=== PATIENT | female | born 1965 | race Caucasian/White ===

== ENCOUNTER 2016-11-04 19:14 | Emergency (ER) | payer MEDICARE, OTHER ==
[2016-11-04 19:14] VITALS: BMI 31.1
[2016-11-04 19:40] VITALS: BP 131/73; PULSE 61; RESP 16; TEMP 98.5; O2SAT 99
--- NOTE | 2016-11-04 21:01 | ED PDOC ---
HPI: Chest Pain Time Seen by Provider: 11/04/16 19:54 Chief Complaint (Nursing): Chest Pain Chief Complaint (Provider): Chest Pain History Per: Family History/Exam Limitations: clinical condition (dementia) Onset/Duration Of Symptoms: Hrs (1 hour prior to arrival), Sudden Onset Current Symptoms Are (Timing): Better Severity: Moderate Associated Symptoms: Dyspnea (mild). denies: Nausea, Other (vomiting) Additional Complaint(s): Brandi Pradhan is a 51 year old female, accompanied to the ER with her family, with a past medical history of Alzheimer's disease and hypertension, who presents to the emergency department for the evaluation of an acute onset of chest pain, that the patient experienced while she was resting, 1 hour prior to arrival. As per patient's family, her chest pain was inclusive of approximately 15-20 minutes of belching. On arrival to the emergency department , patient denies any symptoms, which the family states is consistent with her dementia. Associated mild dyspnea is currently present. Denies nausea or vomiting. PMD: none specified Past Medical History Reviewed: Historical Data, Nursing Documentation, Vital Signs Vital Signs: Last Vital Signs Temp 98.5 F 11/04/16 19:37 Pulse 61 11/04/16 19:37 Resp 16 11/04/16 19:37 BP 131/73 11/04/16 19:37 Pulse Ox 99 11/04/16 19:37 - Medical History PMH: Alzheimer's Disease, HTN - Surgical History Surgical History: Appendectomy Other surgeries: Cataract Surgery - Family History Family History: States: No Known Family Hx - Living Arrangements Living Arrangements: With Family - Social History Current smoker - smoking cessation education provided: No Ex-Smoker (has not smoked in the last 12 months): No Alcohol: None Drugs: Denies - Allergies Allergies/Adverse Reactions: Allergies Allergy/AdvReac Type Severity Reaction Status Date / Time Sulfa (Sulfonamide Allergy PAIN Verified 11/04/16 19:35 Antibiotics) Review of Systems Review Of Systems: ROS cannot be obtained secondary to pt's inabilty to answer questions. (ROS is unobtainable due to patient's clinical condition of dementia) Constitutional: Positive for: Other (belching) Cardiovascular: Positive for: Chest Pain Respiratory: Positive for: Shortness of Breath (mild) Gastrointestinal: Negative for: Nausea, Vomiting Physical Exam - Reviewed Nursing Documentation Reviewed: Yes Vital Signs Reviewed: Yes - Physical Exam Appears: Positive for: Non-toxic, No Acute Distress Head Exam: Positive for: ATRAUMATIC, NORMOCEPHALIC Skin: Positive for: Normal Color, Warm, Dry Eye Exam: Positive for: Normal appearance, EOMI Cardiovascular/Chest: Positive for: Regular Rate, Rhythm. Negative for: Murmur Respiratory: Positive for: Normal Breath Sounds. Negative for: Respiratory Distress Gastrointestinal/Abdominal: Positive for: Normal Exam, Soft, Tenderness ( epigastric) Back: Positive for: Normal Inspection. Negative for: L CVA Tenderness, R CVA Tenderness Extremity: Positive for: Normal ROM. Negative for: Tenderness, Swelling Neurologic/Psych: Positive for: Alert. Negative for: Oriented (only oriented to person, which is baseline for this patient) - ECG O2 Sat by Pulse Oximetry: 99 (RA) Pulse Ox Interpretation: Normal Medical Decision Making Medical Decision Makin:54 Initial Impression: 51 year old female presents to the emergency department for chest pain and epigastric tenderness with a known setting of Alzheimer's disease and hypertension. Initial Plan: * Duplex Left Upper Extremity Ultrasound * Electrocardiogram * Complete Blood Count * Comprehensive Metabolic Panel * Erythrocyte Sedimentation Rate * Prothrombin Time * Partial Thromboplastin Time * Lipase * Urine Dip * Urine * Reevaluation Scribe Attestation: Documented by Antonio Hilario, acting as a scribe for Woo Brody MD. Provider Scribe Attestation: All medical record entries made by the Scribe were at my direction and personally dictated by me. I have reviewed the chart and agree that the record accurately reflects my personal performance of the history, physical exam, medical decision making, and the department course for this patient. I have also personally directed, reviewed, and agree with the discharge instructions and disposition.
[2016-11-04 21:04] LABS: BASO % 0.7 % (0.0-2.0); EOS # 0.3 K/uL (0.0-0.7); EOS % 4.4 % (0.0-4.0); HEMATOCRIT 39.5 % (34.0-47.0); LYMPH % 30.8 % (20.0-40.0); MEAN CELL VOLUME 86.8 fl (81.0-99.0); MEAN CORPUSCULAR HEMOGLOBIN 28.5 pg (27.0-31.0); MEAN CORPUSCULAR HGB CONC 32.9 g/dL (33.0-37.0); MONO # 0.5 K/uL (0.0-0.8); MONO % 8.2 % (0.0-10.0); NEUT # 3.7 K/uL (1.8-7.0); NEUT % 55.9 % (50.0-75.0); RED CELL DISTRIBUTION WIDTH 13.6 % (11.5-14.5); WHITE BLOOD COUNT 6.6 K/uL (4.8-10.8)
--- NOTE | 2016-11-04 21:25 | ED PDOC ---
Upper Extremity Pain/Injury Time Seen by Provider: 11/04/16 19:54 Chief Complaint (Nursing): Chest Pain Chief Complaint (Provider): Left Arm & Abdominal Pain History Per: Patient History/Exam Limitations: no limitations Onset/Duration Of Symptoms: Days (ongoing for 4 days), Persistent Current Symptoms Are (Timing): Still Present Severity: Moderate Additional Complaint(s): Brandi Pradhan is a 51 year old female, with a past medical history of lupus and hypertension, who presents to the emergency department for the evaluation of persistent left arm and abdominal pain, that the patient has been experiencing for the past 4 days. Patient denies taking any over the counter medications to help alleviate her pain. Associated nausea and loss of appetite are currently present. Denies a fever, vomiting, diarrhea, or a cough. Of note, patient is compliant with her medication(s) for lupus. PMD: none specified Past Medical History Reviewed: Historical Data, Nursing Documentation, Vital Signs Vital Signs: Last Vital Signs Temp 98.5 F 11/04/16 19:37 Pulse 61 11/04/16 19:37 Resp 16 11/04/16 19:37 BP 131/73 11/04/16 19:37 Pulse Ox 99 11/04/16 19:37 - Medical History PMH: HTN Other PMH: Lupus - Surgical History Surgical History: Cholecystectomy Other surgeries: Hysterectomy - Family History Family History: States: No Known Family Hx - Social History Current smoker - smoking cessation education provided: No Ex-Smoker (has not smoked in the last 12 months): No Alcohol: None Drugs: Denies - Home Medications Home Medications: Ambulatory Orders Medication Instructions Recorded Naproxen [Naprosyn] 500 mg PO Q12 #14 tab 11/04/16 - Allergies Allergies/Adverse Reactions: Allergies Allergy/AdvReac Type Severity Reaction Status Date / Time Sulfa (Sulfonamide Allergy PAIN Verified 11/04/16 19:35 Antibiotics) Review of Systems ROS Statement: Except As Marked, All Systems Reviewed And Found Negative Constitutional: Negative for: Fever Respiratory: Negative for: Cough Gastrointestinal: Positive for: Nausea, Abdominal Pain, Other (loss of appetite) . Negative for: Vomiting, Diarrhea Musculoskeletal: Positive for: Arm Pain (L) Physical Exam - Reviewed Nursing Documentation Reviewed: Yes Vital Signs Reviewed: Yes - Physical Exam Appears: Positive for: Well, Non-toxic, No Acute Distress Head Exam: Positive for: ATRAUMATIC, NORMOCEPHALIC Skin: Positive for: Normal Color, Warm, Dry Cardiovascular/Chest: Positive for: Regular Rate, Rhythm. Negative for: Murmur Respiratory: Positive for: Normal Breath Sounds. Negative for: Respiratory Distress Gastrointestinal/Abdominal: Positive for: Normal Exam, Soft. Negative for: Tenderness Back: Positive for: Normal Inspection. Negative for: L CVA Tenderness, R CVA Tenderness Extremity: Positive for: Normal ROM. Negative for: Tenderness, Swelling Neurologic/Psych: Positive for: Alert, Oriented. Negative for: Motor/Sensory Deficits - Laboratory Results Result Diagrams: 11/04/16 20:50 11/04/16 20:50 - ECG O2 Sat by Pulse Oximetry: 99 (RA) Pulse Ox Interpretation: Normal Medical Decision Making Medical Decision Makin:54 Initial Impression: 51 year old female presenting to the emergency department with left upper extremity pain and a setting of known lupus. Initial Plan: * Duplex Left Upper Extremity Ultrasound * Electrocardiogram * Complete Blood Count * Comprehensive Metabolic Panel * Erythrocyte Sedimentation Rate * Prothrombin Time * Partial Thromboplastin Time * Lipase * Urine Dip * Urine * Reevaluation Scribe Attestation: Documented by Antonio Hilario, acting as a scribe for Woo Brody MD. Provider Scribe Attestation: All medical record entries made by the Scribe were at my direction and personally dictated by me. I have reviewed the chart and agree that the record accurately reflects my personal performance of the history, physical exam, medical decision making, and the department course for this patient. I have also personally directed, reviewed, and agree with the discharge instructions and disposition. Time: 22:50 --Extremity Ultrasound FINDINGS: No DVT in the internal jugular, subclavian, axillary, or brachial veins. The veins are compressible with normal color flow and augmentation. No thrombus in the visualized basilic and cephalic veins. No thrombus identified in the radial or ulnar veins. IMPRESSION: No deep venous thrombosis in visualized veins of the left upper extremity. Time: 23:52 --Labs reviewed with no clinical significant abnormalities. Upon provider reevaluation patient reports improvement and is medically stable, and requires no further treatment in the ED at this time. Patient will be discharged home with Rx for Naproxen 500 mg. Counseling was provided and all questions were answered regarding diagnosis and need for follow up with primary care physician. There is agreement to discharge plan. Return if symptoms persist or worsen. Clinical Impression: Left arm pain with abdominal pain in setting of known lupus Scribe Attestation: Documented by Irene Durbin, acting as a scribe for Woo Brody MD. Provider Scribe Attestation: All medical record entries made by the Scribe were at my direction and personally dictated by me. I have reviewed the chart and agree that the record accurately reflects my personal performance of the history, physical exam, medical decision making, and the department course for this patient. I have also personally directed, reviewed, and agree with the discharge instructions and disposition. Disposition - Clinical Impression Clinical Impression: Upper extremity pain, Abdominal pain - Disposition Disposition: Routine/Home Disposition Time: 23:52 Condition: STABLE Prescriptions: Naproxen [Naprosyn] 500 mg PO Q12 #14 tab Instructions: Abdominal Pain (ED), Autoimmune Disease (ED) Print Language: ERITREAN
[2016-11-04 21:30] LABS: PARTIAL THROMBOPLASTIN TIME 27.6 SECONDS (23.3-32.5)
[2016-11-04 21:31] LABS: ALB/GLOB RATIO 1.3 (1.0-2.1); ALKALINE PHOSPHATASE 84 U/L (38-126); ALT/SGPT 38 U/L (9-52); AST/SGOT 29 U/L (14-36); BILIRUBIN,TOTAL 0.9 mg/dl (0.2-1.3); BLOOD UREA NITROGEN 20 mg/dl (7-17); CARBON DIOXIDE 27 mmol/L (22-30); CHLORIDE 102 mmol/L (98-107); GFR AFRICAN-AMERICAN > 60; GLUCOSE,RANDOM 113 mg/dL (65-105); LIPASE 282 U/L (23-300); POTASSIUM 3.4 MMOL/L (3.6-5.0); SODIUM 140 mmol/l (132-148); TOTAL PROTEIN 7.8 G/DL (6.3-8.2)
[2016-11-04 22:00] LABS: RBC URINE 2 /hpf (0-3); URINE BACTERIA RARE (<OCC); URINE BILIRUBIN NEGATIVE (NEGATIVE); URINE BLOOD NEGATIVE (NEGATIVE); URINE COLOR YELLOW (YELLOW); URINE GLUCOSE (UA) NEG (Normal); URINE KETONE NEGATIVE (NEGATIVE); URINE LEUKOCYTE ESTERASE NEG Leu/uL (Negative); URINE PROTEIN NEGATIVE (NEGATIVE); URINE UROBILINOGEN 0.2-1.0 mg/dL (0.2-1.0); WBC URINE 1 /hpf (0-5)
--- NOTE | 2016-11-04 22:51 | US ---
EXAM: US Duplex Left Upper Extremity Veins CLINICAL HISTORY: 51 years old, female; Pain; Arn, upper; Left TECHNIQUE: Real-time ultrasound scan of the veins of the left upper extremity with color Doppler flow, spectral waveform analysis and compression. COMPARISON: No relevant prior studies available. FINDINGS: No DVT in the internal jugular, subclavian, axillary, or brachial veins. The veins are compressible with normal color flow and augmentation. No thrombus in the visualized basilic and cephalic veins. No thrombus identified in the radial or ulnar veins. IMPRESSION: No deep venous thrombosis in visualized veins of the left upper extremity.
--- NOTE | 2016-11-09 10:05 | CARD ---
APPROVED REPORT EKG Measurement Heart [id number] <Conclusion> Normal sinus rhythm Normal ECG
== END 2016-11-05 00:17 | disposition home or self-care (01) ==
LOC: H.ER 19:14
DX: M79.602 Pain in left arm (principal); R10.9 Unspecified abdominal pain; I10 Essential (primary) hypertension; M32.9 Systemic lupus erythematosus, unspecified; Z87.891 Personal history of nicotine dependence
CPT/HCPCS: 80053; 81003; 81025; 83690; 84484; 85025; 85610; 85651; 85730; 87086; 87181; 93005; 93971; 96374; 99284; J1885

== ENCOUNTER 2017-01-31 19:40 | Emergency (ER) | payer MEDICARE, OTHER ==
[2017-01-31 19:41] VITALS: BMI 30.2
[2017-01-31 20:14] VITALS: BP 126/86; PULSE 66; RESP 20; TEMP 98.3; O2SAT 100
--- NOTE | 2017-01-31 21:07 | ED PDOC ---
HPI: Back Time Seen by Provider: 01/31/17 20:15 Chief Complaint (Nursing): Back Pain Chief Complaint (Provider): Flank pain History Per: Patient History/Exam Limitations: no limitations Onset/Duration Of Symptoms: Days (x 1) Current Symptoms Are (Timing): Still Present Additional Complaint(s): Brandi Pradhan is a 51 y/o female with a past medical history of Lupus , who presents to the ED complaining of right flank pain with associated mild upper abdominal pain and nausea, for 1 day. Denies fever, cough, vomiting, and shortness of breath. Reports she has had mild diarrhea. No visible hematuria or other urinary symptoms. PMD: Trino Hernandez MD Past Medical History Reviewed: Historical Data, Nursing Documentation, Vital Signs Vital Signs: Last Vital Signs Temp 98.3 F 01/31/17 20:11 Pulse 66 01/31/17 20:11 Resp 20 01/31/17 20:11 BP 126/86 01/31/17 20:11 Pulse Ox 100 01/31/17 20:11 - Medical History PMH: Asthma, HTN Other PMH: Lupus - Surgical History Surgical History: Cholecystectomy Other surgeries: Hysterectomy, oophorectomy - Family History Family History: States: Unknown Family Hx - Social History Current smoker - smoking cessation education provided: No Alcohol: None Drugs: Denies - Home Medications Home Medications: Ambulatory Orders Medication Instructions Recorded Naproxen [Naprosyn] 500 mg PO Q12 #14 tab 11/04/16 traMADol [Ultram] 50 mg PO Q6 PRN #12 tab 01/31/17 - Allergies Allergies/Adverse Reactions: Allergies Allergy/AdvReac Type Severity Reaction Status Date / Time Sulfa (Sulfonamide Allergy PAIN Verified 11/04/16 19:35 Antibiotics) Review of Systems ROS Statement: Except As Marked, All Systems Reviewed And Found Negative Constitutional: Negative for: Fever Respiratory: Negative for: Cough, Shortness of Breath Gastrointestinal: Positive for: Nausea, Abdominal Pain (Flank pain), Diarrhea. Negative for: Vomiting Genitourinary Female: Negative for: Dysuria, Frequency, Incontinence, Hematuria Physical Exam - Reviewed Nursing Documentation Reviewed: Yes Vital Signs Reviewed: Yes - Physical Exam Appears: Positive for: Non-toxic, Uncomfortable Head Exam: Positive for: ATRAUMATIC, NORMAL INSPECTION, NORMOCEPHALIC Skin: Positive for: Normal Color, Warm, Dry Eye Exam: Positive for: EOMI, Normal appearance, PERRL Neck: Positive for: Normal, Painless ROM, Supple Cardiovascular/Chest: Positive for: Regular Rate, Rhythm. Negative for: Murmur Respiratory: Positive for: Normal Breath Sounds. Negative for: Accessory Muscle Use, Respiratory Distress Gastrointestinal/Abdominal: Positive for: Soft. Negative for: Tenderness Back: Positive for: Normal Inspection, R CVA Tenderness Extremity: Positive for: Normal ROM, Capillary Refill (< 2 sec). Negative for: Pedal Edema, Deformity Neurologic/Psych: Positive for: Alert, Oriented - Laboratory Results Result Diagrams: 01/31/17 21:09 01/31/17 21:09 - ECG O2 Sat by Pulse Oximetry: 100 (RA) Pulse Ox Interpretation: Normal Medical Decision Making Medical Decision Making: Time: 20:25 Impression: 51 y/o female with right flank pain in setting of known Lupus Initial Plan: --Labs --EKG --Toradol given --CT Abdomen/Pelvis w/o contrast Time: 22:28 CT Abdomen/Pelvis: FINDINGS: Lower thorax: No acute findings. ABDOMEN: Liver: Unremarkable. Gallbladder and bile ducts: Cholecystectomy. No ductal dilation. Pancreas: Unremarkable. No ductal dilation. Spleen: Unremarkable. No splenomegaly. Adrenals: Unremarkable. No mass. Kidneys and ureters: Mild right pelvic caliectasis may reflect a recently passed calculus in the correct clinical setting. Mild lobulation to the bilateral kidneys. No obstructive or nonobstructive calculi. Stomach and bowel: Unremarkable. No obstruction. No mucosal thickening. Appendix : No findings to suggest acute appendicitis. PELVIS: Bladder: Unremarkable. No stones. Reproductive: Hysterectomy. ABDOMEN and PELVIS: Intraperitoneal space: Unremarkable. No free air. No significant fluid collection. Bones/joints: No acute fracture. No dislocation. Soft tissues: Unremarkable. Vasculature: Unremarkable. No abdominal aortic aneurysm. Lymph nodes: Unremarkable. No enlarged lymph nodes. IMPRESSION: Mild right pelvic caliectasis may reflect a recently passed calculus in the correct clinical setting. Otherwise no acute obstructive or inflammatory process in the abdomen or pelvis. Time: 22:45 --Labs reviewed, no abnormalities --Patient reports improvement in symptoms Clinical Impression: Renal colic Upon provider reevaluation patient is feeling better, medically stable, and requires no further treatment in the ED at this time. Patient will be discharged with Rx for tramadol. Counseling was provided and all questions were answered regarding diagnosis and need for follow up with PMD in 1-2 days. There is agreement to discharge plan. Return if symptoms persist or worsen. Scribe Attestation: Documented by Ana Lilia Richardson, acting as a scribe for Woo Brody MD Provider Scribe Attestation: All medical record entries made by the Scribe were at my direction and personally dictated by me. I have reviewed the chart and agree that the record accurately reflects my personal performance of the history, physical exam, medical decision making, and the department course for this patient. I have also personally directed, reviewed, and agree with the discharge instructions and disposition. Disposition - Clinical Impression Clinical Impression: Renal colic - Patient ED Disposition Is Patient to be Admitted: No Counseled Patient/Family Regarding: Studies Performed, Diagnosis, Need For Followup, Rx Given - Disposition Disposition: Routine/Home Disposition Time: 22:45 Condition: STABLE Prescriptions: traMADol [Ultram] 50 mg PO Q6 PRN #12 tab PRN Reason: flank pain Instructions: Renal Colic (ED) Forms: [employer] (Djiboutian) Print Language: SAMMARINESE
[2017-01-31 21:12] LABS: RBC URINE 2 /hpf (0-3); URINE BACTERIA RARE (<OCC); URINE BILIRUBIN NEGATIVE (NEGATIVE); URINE BLOOD NEGATIVE (NEGATIVE); URINE COLOR COLORLESS (YELLOW); URINE GLUCOSE (UA) NEG (Normal); URINE KETONE NEGATIVE (NEGATIVE); URINE LEUKOCYTE ESTERASE NEG Leu/uL (Negative); URINE PROTEIN NEGATIVE (NEGATIVE); URINE UROBILINOGEN 0.2-1.0 mg/dL (0.2-1.0); WBC URINE < 1 /hpf (0-5)
[2017-01-31 21:14] LABS: BASO % 0.5 % (0.0-2.0); EOS # 0.3 K/uL (0.0-0.7); EOS % 4.4 % (0.0-4.0); HEMATOCRIT 34.1 % (34.0-47.0); LYMPH % 28.6 % (20.0-40.0); MEAN CORPUSCULAR HEMOGLOBIN 28.3 pg (27.0-31.0); MEAN CORPUSCULAR HGB CONC 33.8 g/dL (33.0-37.0); MEAN PLATELET VOLUME 8.4 fl (7.2-11.7); MONO # 0.5 K/uL (0.0-0.8); MONO % 7.6 % (0.0-10.0); NEUT % 58.9 % (50.0-75.0); RED CELL DISTRIBUTION WIDTH 13.1 % (11.5-14.5); WHITE BLOOD COUNT 6.8 K/uL (4.8-10.8)
[2017-01-31 21:22] LABS: ALB/GLOB RATIO 1.3 (1.0-2.1); ALKALINE PHOSPHATASE 73 U/L (38-126); ALT/SGPT 33 U/L (9-52); AST/SGOT 20 U/L (14-36); BILIRUBIN,TOTAL 0.5 mg/dl (0.2-1.3); BLOOD UREA NITROGEN 22 mg/dl (7-17); CALCIUM 9.2 mg/dL (8.4-10.2); CARBON DIOXIDE 26 mmol/L (22-30); CHLORIDE 104 mmol/L (98-107); GFR AFRICAN-AMERICAN > 60; GLUCOSE,RANDOM 90 mg/dL (65-105); POTASSIUM 3.9 MMOL/L (3.6-5.0); SODIUM 140 mmol/l (132-148); TOTAL PROTEIN 6.9 G/DL (6.3-8.2)
--- NOTE | 2017-02-01 10:37 | CARD ---
APPROVED REPORT EKG Measurement Heart [id number] <Conclusion> Sinus bradycardia Otherwise normal ECG
--- NOTE | 2017-02-01 11:01 | CT ---
PROCEDURE: CT Abdomen and Pelvis without intravenous contrast HISTORY: renal colic COMPARISON: 12/23/2016 TECHNIQUE: Without contrast.. Contrast Dose: 0 Radiation dose: Total exam DLP = 833.21 mGy-cm. This CT exam was performed using one or more of the following dose reduction techniques: Automated exposure control, adjustment of the mA and/or kV according to patient size, and/or use of iterative reconstruction technique. FINDINGS: LOWER THORAX: Unremarkable. LIVER: Unremarkable. No gross lesion or ductal dilatation. GALLBLADDER AND BILE DUCTS: Status post cholecystectomy PANCREAS: Unremarkable. No gross lesion or ductal dilatation. SPLEEN: Unremarkable. ADRENALS: Unremarkable. No mass. KIDNEYS AND URETERS: Unremarkable. No hydronephrosis. No solid mass. VASCULATURE: Unremarkable. No aortic aneurysm. BOWEL: Sigmoid diverticulosis. No evidence of diverticulitis. No bowel obstruction. No other abnormal bowel loops are identified. APPENDIX: Unremarkable. Normal appendix. PERITONEUM: Unremarkable. No free fluid. No free air. LYMPH NODES: Unremarkable. No enlarged lymph nodes. Evidence of prior retroperitoneal lymph node dissection with surgical clips seen along lymph node chains. BLADDER: Mild bladder wall thickening common nonspecific. Bladder inadequately distended. Rule out cystitis. Please correlate with urinalysis. REPRODUCTIVE: Status post hysterectomy. BONES: No acute fracture. OTHER FINDINGS: None. IMPRESSION: No evidence of urinary calculus or urinary tract obstruction. Sigmoid diverticulosis without evidence of diverticulitis. Mild bladder wall thickening common nonspecific. Please correlate with urinalysis for cystitis. Status post hysterectomy. Evidence of prior lymph node dissection with retroperitoneal surgical clips. Status post cholecystectomy. Preliminary interpretation of this examination was reported by Strutta at 10:28 p.m. on 01/31/2017. There is concurrence of this report with the preliminary interpretation.
== END 2017-01-31 23:02 | disposition home or self-care (01) ==
LOC: H.ER 19:40
DX: N23 Unspecified renal colic (principal); M32.9 Systemic lupus erythematosus, unspecified; J45.909 Unspecified asthma, uncomplicated; I10 Essential (primary) hypertension; K57.30 Diverticulosis of large intestine without perforation or abscess without bleeding; Z90.49 Acquired absence of other specified parts of digestive tract; Z90.710 Acquired absence of both cervix and uterus
CPT/HCPCS: 74176; 80053; 81003; 81025; 85025; 93005; 96374; 99282; J1885